=== PATIENT | female | born 1970 | race Caucasian/White ===

== ENCOUNTER 2016-04-06 10:54 | Emergency (ER) | payer BC ==
--- NOTE | 2016-04-06 12:49 | DIAGNOSTIC IMAGING REPORT ---
PROCEDURE: CT HEAD WITHOUT CONTRAST INDICATION: VISUAL CHANGES. TECHNIQUE: Axial CT images were acquired through the head. Coronal and sagittal reformations were created. COMPARISON: None. FINDINGS: No intracranial hemorrhage or extraaxial fluid collections. Ventricles are normal in size, shape and position. There is no mass, mass effect or midline shift. The wilkes-white matter differentiation is normal. There is no edema. The calvarium is intact. The paranasal sinuses and mastoid air cells are normally aerated. The extracranial soft tissues and orbits are normal. IMPRESSION: 1. No CT evidence of acute intracranial process. 2. Findings discussed with at . All CT scans at this facility use dose modulation, iterative reconstruction, and/or weight-based dosing when appropriate to reduce radiation dose to as low as reasonably achievable.
--- NOTE | 2016-04-06 12:56 | DIAGNOSTIC IMAGING REPORT ---
PROCEDURE: XR CHEST 2 VIEW INDICATION: NEAR SYNCOPE TECHNIQUE: PA and lateral views. COMPARISON: None. FINDINGS: Lungs are clear. Heart and mediastinum are normal. Thorax is normal. IMPRESSION: 1. Negative chest.
--- NOTE | 2016-04-06 15:57 | ED NURSING NOTES ---
Clinical Report - Nurses [facility] [address] [place] [address] 04/06/2016 10:57 Patient: JAZZ DAVE TRIAGE Triage time 11:00 Apr 06 2016. Acuity: LEVEL 3. Chief Complaint: NEAR-SYNCOPE. Alert. PARVIN COMA SCORE: Parvin Coma Scale: 15- eyes open spontaneously (4); best verbal response- oriented x 4 (5); best motor response- obeys commands (6). --11:19 Genaro Lovett R.N. 11:06 04/06/16. BP: 132/77. HR: 96. RR: 16. O2 saturation: 100% on room air. Temp: 99.8 F. Pain level now: 0/10. --11:19 Genaro Lovett R.N. Weight: 104.3 kg stated. Height/Length: 65 inches Per Patient. BMI: 38.3. --11:08 Genaro Lovett R.N. Medications Lovastatin Oral 40 mg, daily. Vitamin D Oral (Capsule 2000 unit) 1 capsule, daily. --11:13 Genaro Lovett R.N. Lisinopril-Hydrochlorothiazide Oral (Tablet 10-12.5 mg) 1 tablet, daily. --11:15 Genaro Lovett R.N. Benadryl Oral 25 mg, at bedtime. --11:16 Genaro Lovett R.N. Allergies Sulfa Antibiotics. Definite Moderate(hives) --11:14 Genaro Lovett R.N. Medication/allergy information source: the patient. --11:19 Genaro Lovett R.N. History Arrived by private vehicle. Historian: patient. Primary physician (Tana White, [facility], [facility]). ( Near Syncopal Episode this morning. Pt states that she was in her kitchen this morning and felt as though she was going to black out. She also states that she has had previous similar episodes in the past and that they resolved spontaneously.). Patient was last known well (about one hour ago). Onset was abrupt. Started while participating in light activity. 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 PAST MEDICAL HX: Immunizations: status is unknown. SOCIAL HX: Never smoker. No alcohol use or drug use. No infectious disease exposure. ABUSE ASSESSMENT: No report of abuse. FALL RISK ASSESSMENT: Fall risk assessment completed. No fall risk identified. NUTRITIONAL RISK ASSESSMENT: The nutritional risk assessment revealed no deficiencies. FUNCTIONAL ASSESSMENT: Functional assessment: no impairments noted. LEARNING NEEDS ASSESSMENT: The learning needs assessment revealed no barriers. SKIN INTEGRITY ASSESSMENT: Skin integrity risk assessment completed. No skin integrity risk identified. --11:19 Genaro Lovett R.N. PROBLEMS: Hypertension. Hypercholesterolemia. --11:18 Genaro Lovett R.N. ADDITIONAL SURGERIES: Foot. Hysterectomy. --11:18 Genaro Lovett R.N. Interventions ID band on patient. To treatment room. --11:19 Genaro Lovett R.N. PHYSICAL ASSESSMENT Ambulatory to room. GENERAL / NEURO / PSYCH: Oriented X 4. Alert. Speech within normal limits. HEENT: No facial asymmetry noted. RESPIRATORY: Respirations not labored. CVS: Cardiac rhythm: normal sinus rhythm. GI / : Abdomen soft and nontender. SKIN: Skin is warm and dry. --11:19 Genaro Lovett R.N. NURSING PROGRESS NOTES Patient gowned. Reassurance given. Patient identifiers checked. Call light placed in reach. Bed placed in lowest position. Brakes of bed on. Patient ready for evaluation- chart flagged and ED physician notified. --11:19 Genaro Lovett R.N. EKG time: (11:13 AM). EKG was performed by a tech and shown to the ED physician. --11:23 Maude García 11:30 04/06/2016 Site #1 started via IV in the left forearm with an 20g angiocath, with aseptic technique and good blood return; one attempt. Blood drawn: rainbow set. Labeled in the presence of the patient and sent to the lab. Saline lock flushed with 10 mL saline. --11:40 Genaro Lovett R.N. 12:10 04/06/16. Patient transported to CT by stretcher with tech. --12:21 Genaro Lovett R.N. 12:30 04/06/16. Patient returned from CT by stretcher with tech. --12:30 Genaro Lovett R.N. 11:45 04/06/16. BP: 104/59. HR: 96. RR: 20. O2 saturation: 97% on room air. Pain level now: 0. --12:34 Genaro Lovett R.N. 12:30 04/06/16. BP: 110/68. HR: 86 (regular and normal rate). RR: 16. O2 saturation: 96% on room air. Pain level now: 0. --12:36 Genaro Lovett R.N. 11:30 late entry -. Checked patient name, birthdate and medical record number: patient confirmed. Clean catch urine collected with return of yellow-colored clear urine; odor is normal; sample sent to lab for urinalysis and culture. Specimen labeled in the presence of the patient. --12:37 Genaro Lovett R.N. 13:01 04/06/16. BP: 144/69. HR: 97. RR: 16. O2 saturation: 100% on room air. --13:13 Genaro Lovett R.N. 14:20 04/06/16. BP: 115/60 taken while lying. HR: 93. RR: 19. O2 saturation: 95%. Pain level now: 0. --14:36 Genaro Lovett R.N. 14:25 04/06/16. BP: 126/83 taken while sitting. HR: 103. RR: 16 (regular). O2 saturation: 100% on room air. Pain level now: 0. --14:38 Genaro Lovett R.N. 14:00 04/06/16. BP: 119/68. HR: 110. RR: 16. O2 saturation: 98% on room air. Pain level now: 010. --14:40 Genaro Lovett R.N. ( Called pts. Dr. Shayne No at . Pt.- Dr. Tana Gifford- [phone]). --15:42 Christine Aparicio ER Tech1 ( Appt. made for pt. tomorrow at [address] Olson.). --15:55 Christine Aparicio Tech1 16:00 04/06/2016 Started bag #1 1000 mL IV Fluids IV NS (Saline); at 1000 mL/hr over 30 minute(s) via site #1 via IV pump. --16:00 Guerita Ceballos R.N. 16:02 amb to the BR without assistance. --16:02 Guerita Ceballos R.N. 16:00 04/06/16. Temp: 98.9 F (oral). --16:02 Guerita Ceballos R.N. 15:00 04/06/16. BP: 100/69. HR: 87. RR: 16. O2 saturation: 97%. Pain level now: 0/10. --17:06 Genaro Lovett R.N. <<STRICKEN ENTRY-- 16:30 04/06/2016 Site #1 removed upon admission. --17:09 Genaro Lovett R.N. --END STRIKE>> Correction. --17:12 Genaro Lovett R.N. 16:30 04/06/2016 Site #1 removed upon discharge. Manual pressure, pressure dressing and bandaid applied. --17:12 Genaro Lovett R.N. 16:30 04/06/2016 IV Fluids IV NS Discontinued: bag #1 infused. Total amount infused: 500 mL. IV patency established. IV site checked: no pain, redness, or swelling. IV flushed thoroughly. --17:08 Genaro Lovett R.N. DISPOSITION / DISCHARGE 16:30 04/06/16. BP: 111/69. HR: 87. RR: 16. O2 saturation: 98% on room air. Temp: 99.8 F (oral). Pain level now: 0/10. --16:50 Genaro Lovett R.N. Departure time: 1635. --16:50 Genaro Lovett R.N. 16:35. No learning barriers present. Discharge instructions provided and reviewed with the patient. Reviewed medication(s) (continue your usual medications as previously). Reviewed referral to family practice for followup. Work and school note given. Patient verbalized understanding. Written instructions provided in [place] (copy of pt's EKG and a copy of her lab work sent with her). The patient was discharged by the physician. She was discharged home and accompanied by spouse. She left the Emergency Department ambulatory and via private vehicle. Spouse driving. --17:02 Genaro Lovett R.N. Locked/Released at 04/06/2016 17:13 by Genaro Lovett R.N.
--- NOTE | 2016-04-06 15:57 | ED CLINICAL REPORT ---
Clinical Report - Physicians/[facility] [address] [place] [address] 04/06/2016 10:57 Patient: JAZZ DAVE Time Seen: 11:38 Apr 06 2016. Arrived- By private vehicle. Historian- patient. CPT: ER phys charges level 4 plus (#133762). EKG interpretation (#841101). HISTORY OF PRESENT ILLNESS The patient has recovered. Chief Complaint: NEAR-SYNCOPE and transient blurred vision. This occurred just prior to arrival. It was abrupt in onset and has been intermittent (lasting minutes). (( Near Syncopal Episode this morning. Pt states that she was in her kitchen this morning and felt as though she was going to black out. She also states that she has had previous similar episodes in the past and that they resolved spontaneously.). Patient was last known well (about one hour ago). Onset was abrupt. Started while participating in light activity.). Event was witnessed. At time of event, she was standing. The patient had preceding symptoms of light-headedness and dim vision. No preceding symptoms of nausea or chest pain. The patient felt faint. Experienced repeated episodes. No injuries noted. Currently she feels normal. Similar symptoms previously: Several times, milder. ( Has never told anyone about these before.). Recent medical care: Not recently seen/assessed. REVIEW OF SYSTEMS No headache, dizziness, weakness, chest pain or palpitations. No abdominal pain, vomiting, diarrhea, black stools or bloody stools. No fever, sore throat, difficulty breathing, difficulty with urination or skin rash. No enlarged lymph nodes or cough. All systems otherwise negative, except as recorded above. PAST HISTORY ( Hypertension. Hypercholesterolemia. ADDITIONAL SURGERIES: Foot. Hysterectomy.). Medications: Benadryl Oral 25 mg, at bedtime. Lisinopril-Hydrochlorothiazide Oral (Tablet 10-12.5 mg) 1 tablet, daily. Lovastatin Oral 40 mg, daily. Vitamin D Oral (Capsule 2000 unit) 1 capsule, daily. Allergies: Sulfa Antibiotics. Definite Moderate(hives). SOCIAL HISTORY Never smoker. No alcohol use or drug use. ADDITIONAL NOTES The nursing notes have been reviewed. PHYSICAL EXAM Vital Signs: 04/06/2016 11:06 BP: 132/77. HR: 96. RR: 16. O2 saturation: 100%. Temp: 99.8 F. Pain level now: 0/10. Appearance: Alert. No acute distress. Eyes: Pupils equal, round and reactive to light. No nystagmus. Extraocular movements normal. ENT: Normal ENT inspection. TM's normal. Moist mucous membranes. Pharynx normal. Neck: Normal inspection. Neck supple. CVS: Normal heart rate and rhythm. Heart sounds normal. Pulses normal. Respiratory: No respiratory distress. Breath sounds normal. Abdomen: Soft and nontender. Back: Normal inspection. Skin: Skin warm. Normal skin color. No rash. Extremities: Extremities exhibit normal ROM. No lower extremity edema. Neuro: Alert. Oriented X 3. Mood/affect normal. Speech normal. Cranial nerves normal (as tested). No cerebellar findings. No motor deficit. No sensory deficit. Reflexes normal. LABS, X-RAYS, AND EKG EKG: No acute process. No acute ischemia. Normal sinus rhythm. Normal P waves. Normal KIM. Normal QRS complex. Normal axis. Normal ST and T waves. Prior EKG unavailable. The study has been interpreted contemporaneously. The study has been independently viewed by me. The EKG appears to be a good tracing. Chest X-ray: Normal Chest X-Ray. CT Head: Normal study. No acute changes. Head CT performed without contrast. The study was independently viewed by me, interpreted by the radiologist and discussed with the radiologist. Laboratory Tests: UA-Culture if indicated: (AARTI: 04/06/2016 11:40) ( MsgRcvd 04/06/2016 12:05) Final results Test Result Flag Units (Reference) URINE COLOR YELLOW URINE APPEARANCE CLEAR URINE GLUCOSE NEGATIVE (NEGATIVE) URINE BILIRUBIN NEGATIVE (NEGATIVE) URINE KETONE NEGATIVE (NEGATIVE) URINE SPECIFIC GRAVITY 1.010 (1.010-1.030) URINE PH 7.0 (5.0-8.0) URINE PROTEIN TRACE (NEGATIVE) URINE UROBILINOGEN 0.2 EU/dL (0.2-1.0) URINE NITRITE NEGATIVE (NEGATIVE) URINE BLOOD NEGATIVE (NEGATIVE) URINE LEUK ESTERASE NEGATIVE (NEGATIVE) URINE RBC NONE SEEN rbc/hpf (0-1) URINE WBC 1-3 wbc/hpf (0-1) URINE EPITHELIAL CELLS 1-3 EPI/hpf (0-5) URINE BACTERIA TRACE (<1+) (NONE SEEN) URINE COMMENT CULT NOT INDICATED 1+ MUCOUSURINE CULTURES ARE SET-UP BASED ON THE FOLLOWING CRITERIA:POSITIVE NITRITEPOSITIVE LEUKOCYTE ESTERASEGREATER THAN 10 WHITE BLOOD CELLSMODERATE (2+) OR GREATER BACTERIA CBC w Diff: (AARTI: 04/06/2016 11:30) ( [facility] 04/06/2016 12:38) Final results Test Result Flag Units (Reference) WHITE BLOOD COUNT 7.9 K/uL (4.5-11.5) RED BLOOD COUNT 4.72 M/uL (4.00-5.20) HEMOGLOBIN 13.4 gm/dL (12.0-16.0) HEMATOCRIT 39.5 % (36.0-46.0) MEAN CELL VOLUME 84 fL (80-100) MEAN CORPUSCULAR HGB 28 pg (26-34) MEAN CORPUSCULAR HGB CONC 34 g/dL (31-37) RED CELL DISTRIBUTION WIDTH 12.9 % (11.6-14.8) PLATELET COUNT 381 K/uL (150-400) NEUTROPHIL % 63.5 % (50-75) LYMPH % 28.2 % (25-40) MONO % 5.8 % (3-14) EOSINOPHIL % 1.8 % (0-4) BASOPHIL % 0.7 % (0-2) SED RATE WESTERGREN 31 H mm/hr (0-20) BNP: (AARTI: 04/06/2016 11:30) ( [facility] 04/06/2016 12:32) Final results Test Result Flag Units (Reference) B-TYPE NATRIURETIC PEPTIDE 10.8 pg/ml (5-100) CHEM 13 PANEL: (AARTI: 04/06/2016 11:30) ( [facility] 04/06/2016 13:15) Final results Test Result Flag Units (Reference) GLUCOSE 116 H mg/dL (70-110) BUN 17 mg/dL (7-18) CREATININE 0.9 mg/dL (0.6-1.3) Estimated GFR >60 mL/min Estimated GFR- >60 mL/min Note: Persistent reduction over 3 months in eGFR<60 mL/min/1.73 m2 defines CKD. Patients with eGFR values>=60 mL/min/1.73 m2 may also have CKD if evidence ofpersistent proteinuria. Additional information may be foundat [email or web address].org. SODIUM 141 mmol/L (136-145) POTASSIUM 4.4 mmol/L (3.5-5.1) CHLORIDE 103 mmol/L (98-107) CARBON DIOXIDE 26 mmol/L (21-32) CALCIUM 9.5 mg/dL (8.5-10.1) TOTAL PROTEIN 7.3 g/dL (6.4-8.2) ALBUMIN 4.3 g/dL (3.3-5.0) BILIRUBIN, TOTAL 0.3 mg/dL (0.0-1.0) ALKALINE PHOSPHATASE 68 U/L (46-116) AST (SGOT) 45 H U/L (15-37) ALT (SGPT) 82 H U/L (12-78) MAGNESIUM 2.1 mg/dL (1.8-2.4) CPK 111 U/L (24-260) TROPONIN I <0.05 ng/mL (0.00-1.5) TROPONIN REFERENCE RANGE:<0.1 NEGATIVE0.1-1.5 INDETERMINANT>1.5 POSITIVE THYROID STIMULATING HORMONE 1.951 uIU/mL (0.34-3.74) C-REACTIVE PROTEIN 1.1 H mg/dL (0.0-0.9) . PROGRESS AND PROCEDURES Course of Care: on more specific questioning the patient reveals that her spells are felt to be visual blurriness that comes on. She does not feel dizzy or have symptoms of vertigo. She is not quite sure if these are feelings of near syncope or acute visual changes. She did see an surveillance sensor officer recently because of a screening exam by an precision grinder external. 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 No acute disease process noted. Patient has no history of cardiovascular disease or cerebrovascular disease. No history of migraines or TIA. No history of seizures. 14:17 04/06/16. Patient had a spell in the emergency room. Vitals were normal as well as a cardiac cath lab technologist. There were no neurologic deficits on exam during her spell. Patient describes a pressure sensation over her head neck and upper chest when these spells come on as well. Discussed case with patient's primary care provider, (Balta: Will see in the office within the next week.). Reviewed test results. Agreed upon need for patient follow-up. Health care provider will see patient in office. Patient/family counseled. Disposition: Discharged. Condition: stable and unchanged. CLINICAL IMPRESSION Near syncope vs visual symptoms. INSTRUCTIONS No strenuous activity. Rest. (Stay with family member until follow up.). Warnings: Further evaluation is necessary. GENERAL WARNINGS: Return or contact your physician immediately if your condition worsens or changes unexpectedly, if not improving as expected, or if other problems arise. Your Current Medications: CONTINUE TAKING THE FOLLOWING MEDICATIONS: Benadryl Oral : 25 mg at bedtime. Lisinopril-Hydrochlorothiazide Oral : Tablet 10-12.5 mg, 1 tablet daily. Lovastatin Oral : 40 mg daily. Vitamin D Oral : Capsule 2000 unit, 1 capsule daily. Follow-up: Follow up with your doctor Whitney at 815 am. tomorrow as scheduled. Understanding of the discharge instructions verbalized by patient. (Electronically signed by Kevin Owen MD 04/08/2016 21:07)
--- NOTE | 2016-04-06 15:57 | ED NURSING NOTES ---
Clinical Report - Nurses [facility] [address] [place] [address] 04/06/2016 10:57 Patient: JAZZ DAVE TRIAGE Triage time 11:00 Apr 06 2016. Acuity: LEVEL 3. Chief Complaint: NEAR-SYNCOPE. Alert. PARVIN COMA SCORE: Parvin Coma Scale: 15- eyes open spontaneously (4); best verbal response- oriented x 4 (5); best motor response- obeys commands (6). --11:19 Genaro Lovett R.N. 11:06 04/06/16. BP: 132/77. HR: 96. RR: 16. O2 saturation: 100% on room air. Temp: 99.8 F. Pain level now: 0/10. --11:19 Genaro Lovett R.N. Weight: 104.3 kg stated. Height/Length: 65 inches Per Patient. BMI: 38.3. --11:08 Genaro Lovett R.N. Medications Lovastatin Oral 40 mg, daily. Vitamin D Oral (Capsule 2000 unit) 1 capsule, daily. --11:13 Genaro Lovett R.N. Lisinopril-Hydrochlorothiazide Oral (Tablet 10-12.5 mg) 1 tablet, daily. --11:15 Genaro Lovett R.N. Benadryl Oral 25 mg, at bedtime. --11:16 Genaro Lovett R.N. Allergies Sulfa Antibiotics. Definite Moderate(hives) --11:14 Genaro Lovett R.N. Medication/allergy information source: the patient. --11:19 Genaro Lovett R.N. History Arrived by private vehicle. Historian: patient. Primary physician (Tana White, [facility], [facility]). ( Near Syncopal Episode this morning. Pt states that she was in her kitchen this morning and felt as though she was going to black out. She also states that she has had previous similar episodes in the past and that they resolved spontaneously.). Patient was last known well (about one hour ago). Onset was abrupt. Started while participating in light activity. 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 PAST MEDICAL HX: Immunizations: status is unknown. SOCIAL HX: Never smoker. No alcohol use or drug use. No infectious disease exposure. ABUSE ASSESSMENT: No report of abuse. FALL RISK ASSESSMENT: Fall risk assessment completed. No fall risk identified. NUTRITIONAL RISK ASSESSMENT: The nutritional risk assessment revealed no deficiencies. FUNCTIONAL ASSESSMENT: Functional assessment: no impairments noted. LEARNING NEEDS ASSESSMENT: The learning needs assessment revealed no barriers. SKIN INTEGRITY ASSESSMENT: Skin integrity risk assessment completed. No skin integrity risk identified. --11:19 Genaro Lovett R.N. PROBLEMS: Hypertension. Hypercholesterolemia. --11:18 Genaro Lovett R.N. ADDITIONAL SURGERIES: Foot. Hysterectomy. --11:18 Genaro Lovett R.N. Interventions ID band on patient. To treatment room. --11:19 Genaro Lovett R.N. PHYSICAL ASSESSMENT Ambulatory to room. GENERAL / NEURO / PSYCH: Oriented X 4. Alert. Speech within normal limits. HEENT: No facial asymmetry noted. RESPIRATORY: Respirations not labored. CVS: Cardiac rhythm: normal sinus rhythm. GI / : Abdomen soft and nontender. SKIN: Skin is warm and dry. --11:19 Genaro Lovett R.N. NURSING PROGRESS NOTES Patient gowned. Reassurance given. Patient identifiers checked. Call light placed in reach. Bed placed in lowest position. Brakes of bed on. Patient ready for evaluation- chart flagged and ED physician notified. --11:19 Genaro Lovett R.N. EKG time: (11:13 AM). EKG was performed by a tech and shown to the ED physician. --11:23 Maude García 11:30 04/06/2016 Site #1 started via IV in the left forearm with an 20g angiocath, with aseptic technique and good blood return; one attempt. Blood drawn: rainbow set. Labeled in the presence of the patient and sent to the lab. Saline lock flushed with 10 mL saline. --11:40 Genaro Lovett R.N. 12:10 04/06/16. Patient transported to CT by stretcher with tech. --12:21 Genaro Lovett R.N. 12:30 04/06/16. Patient returned from CT by stretcher with tech. --12:30 Genaro Lovett R.N. 11:45 04/06/16. BP: 104/59. HR: 96. RR: 20. O2 saturation: 97% on room air. Pain level now: 0. --12:34 Genaro Lovett R.N. 12:30 04/06/16. BP: 110/68. HR: 86 (regular and normal rate). RR: 16. O2 saturation: 96% on room air. Pain level now: 0. --12:36 Genaro Lovett R.N. 11:30 late entry -. Checked patient name, birthdate and medical record number: patient confirmed. Clean catch urine collected with return of yellow-colored clear urine; odor is normal; sample sent to lab for urinalysis and culture. Specimen labeled in the presence of the patient. --12:37 Genaro Lovett R.N. 13:01 04/06/16. BP: 144/69. HR: 97. RR: 16. O2 saturation: 100% on room air. --13:13 Genaro Lovett R.N. 14:20 04/06/16. BP: 115/60 taken while lying. HR: 93. RR: 19. O2 saturation: 95%. Pain level now: 0. --14:36 Genaro Lovett R.N. 14:25 04/06/16. BP: 126/83 taken while sitting. HR: 103. RR: 16 (regular). O2 saturation: 100% on room air. Pain level now: 0. --14:38 Genaro Lovett R.N. 14:00 04/06/16. BP: 119/68. HR: 110. RR: 16. O2 saturation: 98% on room air. Pain level now: 010. --14:40 Genaro Lovett R.N. ( Called pts. Dr. Shayne No at . Pt.- Dr. Tana Gifford- [phone]). --15:42 Christine Aparicio ER Tech1 ( Appt. made for pt. tomorrow at [address] Olson.). --15:55 Christine Aparicio Tech1 16:00 04/06/2016 Started bag #1 1000 mL IV Fluids IV NS (Saline); at 1000 mL/hr over 30 minute(s) via site #1 via IV pump. --16:00 Guerita Ceballos R.N. 16:02 amb to the BR without assistance. --16:02 Guerita Ceballos R.N. 16:00 04/06/16. Temp: 98.9 F (oral). --16:02 Guerita Ceballos R.N. 15:00 04/06/16. BP: 100/69. HR: 87. RR: 16. O2 saturation: 97%. Pain level now: 0/10. --17:06 Genaro Lovett R.N. <<STRICKEN ENTRY-- 16:30 04/06/2016 Site #1 removed upon admission. --17:09 Genaro Lovett R.N. --END STRIKE>> Correction. --17:12 Genaro Lovett R.N. 16:30 04/06/2016 Site #1 removed upon discharge. Manual pressure, pressure dressing and bandaid applied. --17:12 Genaro Lovett R.N. 16:30 04/06/2016 IV Fluids IV NS Discontinued: bag #1 infused. Total amount infused: 500 mL. IV patency established. IV site checked: no pain, redness, or swelling. IV flushed thoroughly. --17:08 Genaro Lovett R.N. DISPOSITION / DISCHARGE 16:30 04/06/16. BP: 111/69. HR: 87. RR: 16. O2 saturation: 98% on room air. Temp: 99.8 F (oral). Pain level now: 0/10. --16:50 Genaro Lovett R.N. Departure time: 1635. --16:50 Genaro Lovett R.N. 16:35. No learning barriers present. Discharge instructions provided and reviewed with the patient. Reviewed medication(s) (continue your usual medications as previously). Reviewed referral to family practice for followup. Work and school note given. Patient verbalized understanding. Written instructions provided in [place] (copy of pt's EKG and a copy of her lab work sent with her). The patient was discharged by the physician. She was discharged home and accompanied by spouse. She left the Emergency Department ambulatory and via private vehicle. Spouse driving. --17:02 Genaro Lovett R.N. Locked/Released at 04/06/2016 17:13 by Genaro Lovett R.N.
--- NOTE | 2016-04-06 15:57 | ED ORDER SUMMARY ---
..... 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 verbal order read back to Angélica STAHL) (11:44 Aleena R.N.) Chest 2V Urgent (11:55 04/06/2016 Angélica STAHL) (Ack 11:57 LNations ER Tech1) (12:30 LNations ER Tech1) CT Head wo Cont Urgent (11:55 04/06/2016 Angélica STAHL) (Ack 11:57 LNations ER Tech1) (12:30 LNations ER Tech1) Cardiac Panel Stat (11:55 04/06/2016 Angélica STAHL) (Ack 11:57 LNations ER Tech1) (12:03 Aleena R.N.) BNP Urgent (11:55 04/06/2016 Angélica STAHL) (Ack 11:57 LNations ER Tech1) (12:03 Aleena R.N.) TSH Urgent (11:55 04/06/2016 Angélica STAHL) (Ack 11:57 LNations ER Tech1) (12:03 Aleena R.N.) CRP Urgent (11:56 04/06/2016 Angélica STAHL) (Ack 11:57 LNations ER Tech1) (12:03 Aleena R.N.) ESR Urgent (11:56 04/06/2016 Angélica STAHL) (Ack 11:57 LNations ER Tech1) (12:03 Aleena FarmerNRhoda) - (Orthostatic BP/P) (14:21 04/06/2016 Angélica STAHL) (15:10 Aleena Montemayor) MEDICATION ORDERS: IV FLUIDS: IV Saline Lock (11:04 04/06/2016 Aleena Montemayor verbal order read back to Angélica STAHL) (Ack 12:02 Tabatha FarmerNRhoda) IV NS : initial bolus 500 mL (1000 mL/hr), then none - for X1 (NOW); Routine (15:34 04/06/2016 Angélica STAHL) (Ack 15:47 Tabatha Montemayor) (16:00 Tabatha Montemayor) ORDER SHEET NOTES: [Electronically signed by Genaro Lovett R.N. (17:13 04/06/2016)] [Electronically signed by Kevin Owen MD (21:07 04/08/2016)] [Electronically locked/signed by Genaro Lovett R.N. (17:13 04/06/2016)]
--- NOTE | 2016-04-06 15:57 | ED CLINICAL REPORT ---
Clinical Report - Physicians/Mid Levels [facility] [address] [place] [address] 04/06/2016 10:57 Patient: JAZZ DAVE Time Seen: 11:38 Apr 06 2016. Arrived- By private vehicle. Historian- patient. CPT: ER phys charges level 4 plus (#[id number]). EKG interpretation (#[id number]). HISTORY OF PRESENT ILLNESS The patient has recovered. Chief Complaint: NEAR-SYNCOPE and transient blurred vision. This occurred just prior to arrival. It was abrupt in onset and has been intermittent (lasting minutes). (( Near Syncopal Episode this morning. Pt states that she was in her kitchen this morning and felt as though she was going to black out. She also states that she has had previous similar episodes in the past and that they resolved spontaneously.). Patient was last known well (about one hour ago). Onset was abrupt. Started while participating in light activity.). Event was witnessed. At time of event, she was standing. The patient had preceding symptoms of light-headedness and dim vision. No preceding symptoms of nausea or chest pain. The patient felt faint. Experienced repeated episodes. No injuries noted. Currently she feels normal. Similar symptoms previously: Several times, milder. ( Has never told anyone about these before.). Recent medical care: Not recently seen/assessed. REVIEW OF SYSTEMS No headache, dizziness, weakness, chest pain or palpitations. No abdominal pain, vomiting, diarrhea, black stools or bloody stools. No fever, sore throat, difficulty breathing, difficulty with urination or skin rash. No enlarged lymph nodes or cough. All systems otherwise negative, except as recorded above. PAST HISTORY ( Hypertension. Hypercholesterolemia. ADDITIONAL SURGERIES: Foot. Hysterectomy.). Medications: Benadryl Oral 25 mg, at bedtime. Lisinopril-Hydrochlorothiazide Oral (Tablet 10-12.5 mg) 1 tablet, daily. Lovastatin Oral 40 mg, daily. Vitamin D Oral (Capsule 2000 unit) 1 capsule, daily. Allergies: Sulfa Antibiotics. Definite Moderate(hives). SOCIAL HISTORY Never smoker. No alcohol use or drug use. ADDITIONAL NOTES The nursing notes have been reviewed. PHYSICAL EXAM Vital Signs: 04/06/2016 11:06 BP: 132/77. HR: 96. RR: 16. O2 saturation: 100%. Temp: 99.8 F. Pain level now: 0/10. Appearance: Alert. No acute distress. Eyes: Pupils equal, round and reactive to light. No nystagmus. Extraocular movements normal. ENT: Normal ENT inspection. TM's normal. Moist mucous membranes. Pharynx normal. Neck: Normal inspection. Neck supple. CVS: Normal heart rate and rhythm. Heart sounds normal. Pulses normal. Respiratory: No respiratory distress. Breath sounds normal. Abdomen: Soft and nontender. Back: Normal inspection. Skin: Skin warm. Normal skin color. No rash. Extremities: Extremities exhibit normal ROM. No lower extremity edema. Neuro: Alert. Oriented X 3. Mood/affect normal. Speech normal. Cranial nerves normal (as tested). No cerebellar findings. No motor deficit. No sensory deficit. Reflexes normal. LABS, X-RAYS, AND EKG EKG: No acute process. No acute ischemia. Normal sinus rhythm. Normal P waves. Normal KIM. Normal QRS complex. Normal axis. Normal ST and T waves. Prior EKG unavailable. The study has been interpreted contemporaneously. The study has been independently viewed by me. The EKG appears to be a good tracing. Chest X-ray: Normal Chest X-Ray. CT Head: Normal study. No acute changes. Head CT performed without contrast. The study was independently viewed by me, interpreted by the radiologist and discussed with the radiologist. Laboratory Tests: UA-Culture if indicated: (AARTI: 04/06/2016 11:40) ( MsgRcvd 04/06/2016 12:05) Final results Test Result Flag Units (Reference) URINE COLOR YELLOW URINE APPEARANCE CLEAR URINE GLUCOSE NEGATIVE (NEGATIVE) URINE BILIRUBIN NEGATIVE (NEGATIVE) URINE KETONE NEGATIVE (NEGATIVE) URINE SPECIFIC GRAVITY 1.010 (1.010-1.030) URINE PH 7.0 (5.0-8.0) URINE PROTEIN TRACE (NEGATIVE) URINE UROBILINOGEN 0.2 EU/dL (0.2-1.0) URINE NITRITE NEGATIVE (NEGATIVE) URINE BLOOD NEGATIVE (NEGATIVE) URINE LEUK ESTERASE NEGATIVE (NEGATIVE) URINE RBC NONE SEEN rbc/hpf (0-1) URINE WBC 1-3 wbc/hpf (0-1) URINE EPITHELIAL CELLS 1-3 EPI/hpf (0-5) URINE BACTERIA TRACE (<1+) (NONE SEEN) URINE COMMENT CULT NOT INDICATED 1+ MUCOUSURINE CULTURES ARE SET-UP BASED ON THE FOLLOWING CRITERIA:POSITIVE NITRITEPOSITIVE LEUKOCYTE ESTERASEGREATER THAN 10 WHITE BLOOD CELLSMODERATE (2+) OR GREATER BACTERIA CBC w Diff: (AARTI: 04/06/2016 11:30) ( [facility] 04/06/2016 12:38) Final results Test Result Flag Units (Reference) WHITE BLOOD COUNT 7.9 K/uL (4.5-11.5) RED BLOOD COUNT 4.72 M/uL (4.00-5.20) HEMOGLOBIN 13.4 gm/dL (12.0-16.0) HEMATOCRIT 39.5 % (36.0-46.0) MEAN CELL VOLUME 84 fL (80-100) MEAN CORPUSCULAR HGB 28 pg (26-34) MEAN CORPUSCULAR HGB CONC 34 g/dL (31-37) RED CELL DISTRIBUTION WIDTH 12.9 % (11.6-14.8) PLATELET COUNT 381 K/uL (150-400) NEUTROPHIL % 63.5 % (50-75) LYMPH % 28.2 % (25-40) MONO % 5.8 % (3-14) EOSINOPHIL % 1.8 % (0-4) BASOPHIL % 0.7 % (0-2) SED RATE WESTERGREN 31 H mm/hr (0-20) BNP: (AARTI: 04/06/2016 11:30) ( [facility] 04/06/2016 12:32) Final results Test Result Flag Units (Reference) B-TYPE NATRIURETIC PEPTIDE 10.8 pg/ml (5-100) CHEM 13 PANEL: (AARTI: 04/06/2016 11:30) ( [facility] 04/06/2016 13:15) Final results Test Result Flag Units (Reference) GLUCOSE 116 H mg/dL (70-110) BUN 17 mg/dL (7-18) CREATININE 0.9 mg/dL (0.6-1.3) Estimated GFR >60 mL/min Estimated GFR- >60 mL/min Note: Persistent reduction over 3 months in eGFR<60 mL/min/1.73 m2 defines CKD. Patients with eGFR values>=60 mL/min/1.73 m2 may also have CKD if evidence ofpersistent proteinuria. Additional information may be foundat www.kidney.org. SODIUM 141 mmol/L (136-145) POTASSIUM 4.4 mmol/L (3.5-5.1) CHLORIDE 103 mmol/L (98-107) CARBON DIOXIDE 26 mmol/L (21-32) CALCIUM 9.5 mg/dL (8.5-10.1) TOTAL PROTEIN 7.3 g/dL (6.4-8.2) ALBUMIN 4.3 g/dL (3.3-5.0) BILIRUBIN, TOTAL 0.3 mg/dL (0.0-1.0) ALKALINE PHOSPHATASE 68 U/L (46-116) AST (SGOT) 45 H U/L (15-37) ALT (SGPT) 82 H U/L (12-78) MAGNESIUM 2.1 mg/dL (1.8-2.4) CPK 111 U/L (24-260) TROPONIN I <0.05 ng/mL (0.00-1.5) TROPONIN REFERENCE RANGE:<0.1 NEGATIVE0.1-1.5 INDETERMINANT>1.5 POSITIVE THYROID STIMULATING HORMONE 1.951 uIU/mL (0.34-3.74) C-REACTIVE PROTEIN 1.1 H mg/dL (0.0-0.9) . PROGRESS AND PROCEDURES Course of Care: on more specific questioning the patient reveals that her spells are felt to be visual blurriness that comes on. She does not feel dizzy or have symptoms of vertigo. She is not quite sure if these are feelings of near syncope or acute visual changes. She did see an sales rep recently because of a screening exam by an rivet hammer machine operator. 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 No acute disease process noted. Patient has no history of cardiovascular disease or cerebrovascular disease. No history of migraines or TIA. No history of seizures. 14:17 04/06/16. Patient had a spell in the emergency room. Vitals were normal as well as a crts. There were no neurologic deficits on exam during her spell. Patient describes a pressure sensation over her head neck and upper chest when these spells come on as well. Discussed case with patient's primary care provider, (Balta: Will see in the office within the next week.). Reviewed test results. Agreed upon need for patient follow-up. Health care provider will see patient in office. Patient/family counseled. Disposition: Discharged. Condition: stable and unchanged. CLINICAL IMPRESSION Near syncope vs visual symptoms. INSTRUCTIONS No strenuous activity. Rest. (Stay with family member until follow up.). Warnings: Further evaluation is necessary. GENERAL WARNINGS: Return or contact your physician immediately if your condition worsens or changes unexpectedly, if not improving as expected, or if other problems arise. Your Current Medications: CONTINUE TAKING THE FOLLOWING MEDICATIONS: Benadryl Oral : 25 mg at bedtime. Lisinopril-Hydrochlorothiazide Oral : Tablet 10-12.5 mg, 1 tablet daily. Lovastatin Oral : 40 mg daily. Vitamin D Oral : Capsule 2000 unit, 1 capsule daily. Follow-up: Follow up with your doctor Whitney at 815 am. tomorrow as scheduled. Understanding of the discharge instructions verbalized by patient. (Electronically signed by Kevin Owen MD 04/08/2016 21:07)
--- NOTE | 2016-04-06 15:57 | ED ORDER SUMMARY ---
..... Patient: JAZZ DAVE OrderSheet [facility] VisitID: [id number] [address] [place] [address] 45y, F Registration Date/Time: 04/06/2016 ORDER SHEET Weight: 104.3 kg (stated) Allergies: Sulfa Antibiotics GENERAL ORDERS: Steam Bone Press Tender (Continuous) (Syncope) (11:04 04/06/2016 Aleena R.NRhoda verbal order read back to Angélica STAHL) (11:29 Tabatha R.N.) EKG - ER Stat (11:04 04/06/2016 Aleena Barber.NRhoda verbal order read back to Angélica STAHL) (Ack 11:06 LNations ER Tech1) (11:17 Chad) UA-Culture if indicated Urgent (11:44 04/06/2016 Aleena Barber.N. verbal order read back to Angélica STAHL) (11:44 Aleena R.N.) Chest 2V Urgent (11:55 04/06/2016 Angélica STAHL) (Ack 11:57 LNations ER Tech1) (12:30 LNations ER Tech1) CT Head wo Cont Urgent (11:55 04/06/2016 Angélica STAHL) (Ack 11:57 LNations ER Tech1) (12:30 LNations ER Tech1) Cardiac Panel Stat (11:55 04/06/2016 Angélica STAHL) (Ack 11:57 LNations ER Tech1) (12:03 Aleena R.N.) BNP Urgent (11:55 04/06/2016 Angélica STAHL) (Ack 11:57 LNations ER Tech1) (12:03 Aleena R.N.) TSH Urgent (11:55 04/06/2016 Angélica STAHL) (Ack 11:57 LNations ER Tech1) (12:03 Aleena R.N.) CRP Urgent (11:56 04/06/2016 Angélica STAHL) (Ack 11:57 LNations ER Tech1) (12:03 Aleena R.N.) ESR Urgent (11:56 04/06/2016 Angélica STAHL) (Ack 11:57 LNations ER Tech1) (12:03 Aleena FarmerNRhoda) - (Orthostatic BP/P) (14:21 04/06/2016 Angélica STAHL) (15:10 Aleena Montemayor) MEDICATION ORDERS: IV FLUIDS: IV Saline Lock (11:04 04/06/2016 Aleena Montemayor verbal order read back to Angélica STAHL) (Ack 12:02 Tabatha FarmerNRhoda) IV NS : initial bolus 500 mL (1000 mL/hr), then none - for X1 (NOW); Routine (15:34 04/06/2016 Angélica STAHL) (Ack 15:47 Tabatha Montemayor) (16:00 Tabatha Montemayor) ORDER SHEET NOTES: [Electronically signed by Genaro Lovett R.N. (17:13 04/06/2016)] [Electronically signed by Kevin Owen MD (21:07 04/08/2016)] [Electronically locked/signed by Genaro Lovett R.N. (17:13 04/06/2016)]
--- NOTE | 2016-04-08 21:08 | ED DISCHARGE INSTRUCTIONS ---
Patient: JAZZ DAVE General Instructions [facility] VisitID: [id number] [address] [place] [address] 45y, F Registration Date/Time: 04/06/2016 Near syncope vs visual symptoms. INSTRUCTIONS No strenuous activity. Rest. (Stay with family member until follow up.). Warnings: Further evaluation is necessary. GENERAL WARNINGS: Return or contact your physician immediately if your condition worsens or changes unexpectedly, if not improving as expected, or if other problems arise. Your Current Medications: CONTINUE TAKING THE FOLLOWING MEDICATIONS: Benadryl Oral : 25 mg at bedtime. Lisinopril-Hydrochlorothiazide Oral : Tablet 10-12.5 mg, 1 tablet daily. Lovastatin Oral : 40 mg daily. Vitamin D Oral : Capsule 2000 unit, 1 capsule daily. Follow-up: Follow up with your doctor Whitney at 815 am. tomorrow as scheduled. Understanding of the discharge instructions verbalized by patient. No strenuous activity. Rest. (Electronically signed by Kevin Owen MD 04/08/2016 21:07)
--- NOTE | 2016-04-08 21:08 | ED MAR SUMMARY ---
..... Medication Administration Record [facility] [address] [place] [address] Patient: JAZZ DAVE Visit ID: [id number] 45y, F Weight: 104.3 kg Height/Length: 65 in BMI: 38.3 ALLERGIES: Sulfa Antibiotics Start 16:00 04/06/2016 Guerita Ceballos RLeann, Stop 16:30 04/06/2016 Genaro Lovett RLeann Medication Administered: IV NS (SALINE), Dose: IV Fluids over 30 minute(s), Rate: 1000 mL/hr, Dispensed: 1000 mL bag, Site: #1 left forearm. Medication Ordered: IV NS : initial bolus 500 mL (1000 mL/hr), then none - for X1 (NOW); Routine.
--- NOTE | 2016-04-08 21:08 | ED DISCHARGE INSTRUCTIONS ---
Patient: JAZZ DAVE General Instructions [facility] VisitID: [id number] [address] [place] [address] 45y, F Registration Date/Time: 04/06/2016 Near syncope vs visual symptoms. INSTRUCTIONS No strenuous activity. Rest. (Stay with family member until follow up.). Warnings: Further evaluation is necessary. GENERAL WARNINGS: Return or contact your physician immediately if your condition worsens or changes unexpectedly, if not improving as expected, or if other problems arise. Your Current Medications: CONTINUE TAKING THE FOLLOWING MEDICATIONS: Benadryl Oral : 25 mg at bedtime. Lisinopril-Hydrochlorothiazide Oral : Tablet 10-12.5 mg, 1 tablet daily. Lovastatin Oral : 40 mg daily. Vitamin D Oral : Capsule 2000 unit, 1 capsule daily. Follow-up: Follow up with your doctor Whitney at 815 am. tomorrow as scheduled. Understanding of the discharge instructions verbalized by patient. No strenuous activity. Rest. (Electronically signed by Kevin Owen MD 04/08/2016 21:07)
--- NOTE | 2016-04-08 21:08 | ED MAR SUMMARY ---
..... Medication Administration Record [facility] [address] [place] [address] Patient: JAZZ DAVE Visit ID: [id number] 45y, F Weight: 104.3 kg Height/Length: 65 in BMI: 38.3 ALLERGIES: Sulfa Antibiotics Start 16:00 04/06/2016 Guerita Ceballos RLeann, Stop 16:30 04/06/2016 Genaro Lovett RLeann Medication Administered: IV NS (SALINE), Dose: IV Fluids over 30 minute(s), Rate: 1000 mL/hr, Dispensed: 1000 mL bag, Site: #1 left forearm. Medication Ordered: IV NS : initial bolus 500 mL (1000 mL/hr), then none - for X1 (NOW); Routine.
--- NOTE | 2016-04-08 21:08 | ED MED RECONCILIATION SUMMARY ---
Patient: JAZZ DAVE Medication Reconciliation Report [facility] VisitID: [id number] [address] [place] [address] 45y, F Registration Date/Time: 04/06/2016 Weight: 104.3 kg Height/Length: 65 in. BMI: 38.3 ALLERGIES: Sulfa Antibiotics The patient's Home Medications are listed below: CONTINUE TAKING THE FOLLOWING MEDICATIONS: Benadryl Oral 25 mg, at bedtime Lisinopril-Hydrochlorothiazide Oral (10-12.5 mg) 1 tablet, daily Lovastatin Oral 40 mg, daily Vitamin D Oral (2000 unit) 1 capsule, daily The source(s) of the original Home Medication information: patient The following Medications were given to the patient in the Emergency Department: IV NS IV Fluids bolus 0, then 1000 mL/hr, administered: 04/06/2016 4:00:00 PM The following Medications were prescribed to the patient: None.
--- NOTE | 2016-04-08 21:08 | ED MED RECONCILIATION SUMMARY ---
Patient: JAZZ DAVE Medication Reconciliation Report [facility] VisitID: [id number] [address] [place] [address] 45y, F Registration Date/Time: 04/06/2016 Weight: 104.3 kg Height/Length: 65 in. BMI: 38.3 ALLERGIES: Sulfa Antibiotics The patient's Home Medications are listed below: CONTINUE TAKING THE FOLLOWING MEDICATIONS: Benadryl Oral 25 mg, at bedtime Lisinopril-Hydrochlorothiazide Oral (10-12.5 mg) 1 tablet, daily Lovastatin Oral 40 mg, daily Vitamin D Oral (2000 unit) 1 capsule, daily The source(s) of the original Home Medication information: patient The following Medications were given to the patient in the Emergency Department: IV NS IV Fluids bolus 0, then 1000 mL/hr, administered: 04/06/2016 4:00:00 PM The following Medications were prescribed to the patient: None.
== END 2016-04-06 16:35 | disposition home or self-care (01) ==
LOC: ED SRH 10:54
DX: R55 Syncope and collapse (principal); I10 Essential (primary) hypertension; Z79.899 Other long term (current) drug therapy; Z88.2 Allergy status to sulfonamides
CPT/HCPCS: 90004; 90100; 90616; 91320; 91585; 92610; 92720; 93140; 95059; 95150

== ENCOUNTER 2016-04-07 13:34 | Emergency (ER) | payer BC ==
--- NOTE | 2016-04-07 17:25 | ED CLINICAL REPORT ---
Clinical Report - Physicians/Mid Levels [facility] [address] [address] 04/07/2016 13:38 Patient: JAZZ DAVE Time Seen: 13:52. Arrived- By private vehicle. Historian- patient. HISTORY OF PRESENT ILLNESS Chief Complaint: WEAKNESS. At its maximum, severity described as severe. When seen in the E.D., it was gone. Modifying factors- relieved by rest. Not worsened by anything. This started yesterday and is now gone. It was abrupt in onset and has been intermittent. The patient has had visual disturbance with blurred vision and generalized weakness. Similar symptoms previously: Several times. REVIEW OF SYSTEMS No chills, muscle aches, sweats, calf pain or chest pain. No cough, difficulty breathing, pedal edema, abdominal pain or black stools. No bloody stools, constipation, diarrhea, nausea or vomiting. No urinary problems. The patient has had fatigue. She has had decreased vision ("blurry"). She has had palpitations (chronically for 7 years). It has been similar to previous symptoms. All systems otherwise negative, except as recorded above. PAST HISTORY PCP - G[facility] at [facility]. Problems: Migraine Headache. Hypercholesterolemia. Hypertension. Additional Surgeries: Foot. Hysterectomy. Medications: Benadryl Oral 25 mg, at bedtime. Lisinopril-Hydrochlorothiazide Oral (Tablet 10-12.5 mg) 1 tablet, daily. Lovastatin Oral 40 mg, daily. Vitamin D Oral (Capsule 2000 unit) 1 capsule, daily. Allergies: Sulfa Antibiotics. Definite Moderate(hives). SOCIAL HISTORY Never smoker. No alcohol use or drug use. Is a local resident. She lives with spouse. FAMILY HISTORY Cancer in first-degree relative (mother). father with high cholesterol. ADDITIONAL NOTES The nursing notes have been reviewed. PHYSICAL EXAM Vital Signs: 04/07/2016 13:49 BP: 157/75. HR: 97. RR: 18. O2 saturation: 97%. Temp: 98.9 F. Have been reviewed. Appearance: Alert. Eyes: Pupils equal, round and reactive to light. ENT: Pharynx normal. Neck: Normal inspection. Neck supple. CVS: Normal heart rate and rhythm. Heart sounds normal. Respiratory: No respiratory distress. Breath sounds normal. Abdomen: No visible injury. Soft and nontender. Bowel sounds normal. No organomegaly. No mass. Back: Normal inspection. No CVA tenderness. Skin: Skin warm and dry. Normal skin color. Normal skin turgor. Extremities: Extremities exhibit normal ROM. No calf tenderness. No lower extremity edema. LABS, X-RAYS, AND EKG EKG: No acute process. Normal EKG. Rate: 75. The study has been independently viewed by me. Laboratory Tests: UA-Culture if indicated: (AARTI: 04/07/2016 15:00) ( MsgRcvd 04/07/2016 15:20) Final results Test Result Flag Units (Reference) URINE COLOR YELLOW URINE APPEARANCE CLEAR URINE GLUCOSE NEGATIVE (NEGATIVE) URINE BILIRUBIN NEGATIVE (NEGATIVE) URINE KETONE 1+ (NEGATIVE) URINE SPECIFIC GRAVITY <= 1.005 L (1.010-1.030) URINE PH 6.0 (5.0-8.0) URINE PROTEIN NEGATIVE (NEGATIVE) URINE UROBILINOGEN 0.2 EU/dL (0.2-1.0) URINE NITRITE NEGATIVE (NEGATIVE) URINE BLOOD TRACE-INTACT (NEGATIVE) URINE LEUK ESTERASE NEGATIVE (NEGATIVE) URINE RBC NONE SEEN rbc/hpf (0-1) URINE WBC NONE SEEN wbc/hpf (0-1) URINE EPITHELIAL CELLS NONE SEEN EPI/hpf (0-5) URINE BACTERIA NONE SEEN (NONE SEEN) URINE COMMENT CULT NOT INDICATED URINE CULTURES ARE SET-UP BASED ON THE FOLLOWING CRITERIA:POSITIVE NITRITEPOSITIVE LEUKOCYTE ESTERASEGREATER THAN 10 WHITE BLOOD CELLSMODERATE (2+) OR GREATER BACTERIA CBC w Diff: (AARTI: 04/07/2016 14:09) ( MsgRcvd 04/07/2016 14:21) Final results Test Result Flag Units (Reference) WHITE BLOOD COUNT 9.1 K/uL (4.5-11.5) RED BLOOD COUNT 4.67 M/uL (4.00-5.20) HEMOGLOBIN 13.3 gm/dL (12.0-16.0) HEMATOCRIT 39.0 % (36.0-46.0) MEAN CELL VOLUME 83 fL (80-100) MEAN CORPUSCULAR HGB 28 pg (26-34) MEAN CORPUSCULAR HGB CONC 34 g/dL (31-37) RED CELL DISTRIBUTION WIDTH 13.1 % (11.6-14.8) PLATELET COUNT 403 H K/uL (150-400) NEUTROPHIL % 66.9 % (50-75) LYMPH % 27.2 % (25-40) MONO % 5.3 % (3-14) EOSINOPHIL % 0 % (0-4) BASOPHIL % 0.6 % (0-2) PT with INR: (AARTI: 04/07/2016 14:09) ( [facility] 04/07/2016 14:45) Final results Test Result Flag Units (Reference) INR 1.0 (0.8-1.2) Low Intensity Therapy: INR 1.5-2.0 PT range 18.5-23.1Mod.Intensity Therapy: INR 2.0-3.0 PT range 23.1-31.5High Intensity Therapy: INR 2.5-3.5 PT range 27.4-35.5High Intensity Therapy 2: INR 3.0-4.0 PT range 31.5-39.3 APTT 26 SECONDS (24-34) BNP: (AARTI: 04/07/2016 14:09) ( [facility] 04/07/2016 14:46) Final results Test Result Flag Units (Reference) B-TYPE NATRIURETIC PEPTIDE 41.4 pg/ml (5-100) CMP: (AARTI: 04/07/2016 14:09) ( [facility] 04/07/2016 14:55) Final results Test Result Flag Units (Reference) GLUCOSE 114 H mg/dL (70-110) BUN 18 mg/dL (7-18) CREATININE 0.9 mg/dL (0.6-1.3) Estimated GFR >60 mL/min Estimated GFR- >60 mL/min Note: Persistent reduction over 3 months in eGFR<60 mL/min/1.73 m2 defines CKD. Patients with eGFR values>=60 mL/min/1.73 m2 may also have CKD if evidence ofpersistent proteinuria. Additional information may be foundat www.kidney.org. SODIUM 139 mmol/L (136-145) POTASSIUM 3.2 # L mmol/L (3.5-5.1) CHLORIDE 100 mmol/L (98-107) CARBON DIOXIDE 25 mmol/L (21-32) CALCIUM 9.6 mg/dL (8.5-10.1) TOTAL PROTEIN 8.0 g/dL (6.4-8.2) ALBUMIN 4.2 g/dL (3.3-5.0) BILIRUBIN, TOTAL 0.3 mg/dL (0.0-1.0) ALKALINE PHOSPHATASE 61 U/L (46-116) AST (SGOT) 33 U/L (15-37) ALT (SGPT) 76 U/L (12-78) LIPASE 128 U/L (73-393) AMYLASE 38 U/L (25-115) CPK 186 U/L (24-260) TROPONIN I <0.05 L ng/mL (0.00-1.5) TROPONIN REFERENCE RANGE:<0.1 NEGATIVE0.1-1.5 INDETERMINANT>1.5 POSITIVE THYROID STIMULATING HORMONE 1.634 uIU/mL (0.34-3.74) . PROGRESS AND PROCEDURES Course of Care: Patient is stable. Patient/family counseled. Old medical records reviewed. Disposition: Discharged. Condition: stable. CLINICAL IMPRESSION Near syncope near syncope versus visual/neurological symptoms. INSTRUCTIONS (talk with your primary care doctor, neurologist and/or lubrication supervisor about whether he would benefit from MRI imaging and a Holter monitor as discussed). Warnings: Further evaluation is necessary. GENERAL WARNINGS: Return or contact your physician immediately if your condition worsens or changes unexpectedly, if not improving as expected, or if other problems arise. Your Current Medications: CONTINUE TAKING THE FOLLOWING MEDICATIONS: Benadryl Oral : 25 mg at bedtime. Lisinopril-Hydrochlorothiazide Oral : Tablet 10-12.5 mg, 1 tablet daily. Lovastatin Oral : 40 mg daily. Vitamin D Oral : Capsule 2000 unit, 1 capsule daily. Follow-up: Follow up with your doctor tomorrow. Call for the next available appointment. Follow up with a lubrication supervisor and neurologist- as recommended by your primary care physician. Understanding of the discharge instructions verbalized by patient. (Electronically signed by Abhijeet Mullen MD 04/07/2016 18:36)
--- NOTE | 2016-04-07 17:25 | ED NURSING NOTES ---
Clinical Report - Nurses [facility] [address] [place] [address] 04/07/2016 13:38 Patient: JAZZ DAVE TRIAGE Triage time 13:44 Apr 07 2016. Acuity: LEVEL 3. Chief Complaint: NEAR-SYNCOPE. 13:49 04/07/16. Alert. No acute distress. SEPSIS SCREEN: Sepsis Screen. Negative (no infection suspected/documented). PARVIN COMA SCORE: Parvin Coma Scale: 15- eyes open spontaneously (4); best verbal response- oriented x 4 (5); best motor response- obeys commands (6). --13:49 Zee Campa 13:49 04/07/16. BP: 157/75. HR: 97. RR: 18. O2 saturation: 97%. Temp: 98.9 F. Pain level now 0/10. --13:49 Zee Campa. Weight: 104.3 kg stated. Height/Length: 65 inches Per Patient. BMI: 38.3. --13:48 Zee Campa. Medications Benadryl Oral 25 mg, at bedtime. Lisinopril-Hydrochlorothiazide Oral (Tablet 10-12.5 mg) 1 tablet, daily. Lovastatin Oral 40 mg, daily. Vitamin D Oral (Capsule 2000 unit) 1 capsule, daily. --13:48 Zee Campa. Medication/allergy information source: the patient. --13:49 Zee Campa. Allergies Sulfa Antibiotics. Definite Moderate(hives) --13:48 Zee Campa. History Arrived by private vehicle. Historian: patient. Accompanied by spouse. Primary physician ([facility]). This started yesterday. ( Pt reports that she has been having episodes of feeling faint and as though she is going to pass out. Pt denies total LOC. Has occurred 7-8 times in past hour. Pt reports that this has been going on a for about the past 6 months, but yesterday got much worse. Was seen here yesterday, presents today for increased symptoms. Has appointment with cardiology tomorrow at [facility] at 1430.). She has had weakness. No ear pain, nausea, trouble walking, headache or vomiting. No fainting episodes or tinnitus. 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 PAST MEDICAL HX: Hypertension. No history of stroke or diabetes mellitus. No history of seizures or GI bleed. Immunizations: up-to-date. SOCIAL HX: Never smoker. No alcohol use or drug use. FALL RISK ASSESSMENT: Fall risk assessment completed. No fall risk identified. NUTRITIONAL RISK ASSESSMENT: The nutritional risk assessment revealed no deficiencies. FUNCTIONAL ASSESSMENT: Functional assessment: no impairments noted. LEARNING NEEDS ASSESSMENT: The learning needs assessment revealed no barriers. SKIN INTEGRITY ASSESSMENT: Skin integrity risk assessment completed. No skin integrity risk identified. --13:49 Zee Campa. PROBLEMS: Hypercholesterolemia. Hypertension. --13:49 Zee Campa. ADDITIONAL SURGERIES: Foot. Hysterectomy. --13:49 Zee Campa. Assessment The patient states feels the same. --13:49 Zee Campa. Interventions ID band on patient. --13:49 Zee Campa. PHYSICAL ASSESSMENT 13:50 04/07/16. Ambulatory to room. Patient gowned. GENERAL / NEURO / PSYCH: Oriented X 4. Appears in no acute distress. Alert. Speech within normal limits. HEENT: No facial asymmetry noted. Pupils equal, round and reactive to light. RESPIRATORY: Respirations not labored. CVS: Normal sinus rhythm noted. Capillary refill less than 2 seconds. GI / : Abdomen soft and nontender. SKIN: Skin is warm and dry. --13:50 Zee Campa. NURSING PROGRESS NOTES 13:50 04/07/16. The plan of care for this patient has been created. regional sales executive, pulse oximeter and NIBP monitor placed on patient; electrical instrument technician- Lead II and V5; monitor alarms on. Patient gowned. Head of bed elevated. Reassurance given. Two patient identifiers checked. Call light placed in reach. Side rails up x 1. Bed placed in lowest position. Brakes of bed on. Patient ready for evaluation- chart flagged and ED physician and MERCHANDISE APPRAISER notified. --13:50 Zee Campa 14:10 04/07/2016 Site #1 started via IV in the left forearm with an 22g angiocath, with aseptic technique and good blood return; two attempts. Blood drawn: rainbow set. Labeled in the presence of the patient and sent to the lab. Saline lock flushed with 10 mL saline. --14:10 Zee Campa 14:11 04/07/16. BP: 115/60. HR: 91. RR: 14. O2 saturation: 99% on room air. --14:12 Benton Sheets 14:12 04/07/16. BP: 116/82 taken while standing. HR: 96. RR: 15. O2 saturation: 99%. 14:10 04/07/16. BP: 122/79 taken while sitting. HR: 96. RR: 16. O2 saturation: 98%. 14:08 04/07/16. BP: 115/60 taken while lying. HR: 81. RR: 16. O2 saturation: 99%. --14:17 Zee Campa 15:11 04/07/16. BP: 114/64. HR: 85. O2 saturation: 98% on room air. --15:11 Zee Campa EKG time: (16:31). EKG was performed by a tech and shown to the ED physician. --16:33 Raul Hedrick 17:07 04/07/16. Care transferred and report given (Genaro Barber RN). --17:07 Zee Campa <<STRICKEN ENTRY-- 18:42 04/07/16. BP: 107/67. HR: 74. RR: 17. O2 saturation: 97%. Pain level now: 0/10. --18:43 Genaro Lovett RRhodaNRhoda --END STRIKE>> Correction --18:44 Genaro Lovett R.N. 17:00 04/07/16. BP: 107/67. HR: 74. RR: 17. O2 saturation: 97% on room air. Pain level now: 0/10. --18:46 Genaro Lovett R.N. 17:30 04/07/16. BP: 154/77. HR: 74. RR: 16. O2 saturation: 96% on room air. Pain level now: 0/10. --18:48 Genaro Lovett R.N. DISPOSITION / DISCHARGE 18:05 04/07/16. BP: 119/63. HR: 79. RR: 16. O2 saturation: 97% on room air. ED physician notified. Temp: 99.3 F (oral). Pain level now: 0/10. --18:40 Genaro Lovett R.N. Departure time: 1810. --18:40 Genaro Lovett R.N. 18:10. Condition at departure: improved. No learning barriers present. Discharge instructions provided and reviewed with the patient and spouse. Reviewed medication(s) (continue your usual prescribed medications). Reviewed referral to a neurologist and clinical sociologist and family practice for followup. Patient and spouse verbalized understanding. Written instructions provided in Persian. The patient was discharged by the physician. She was discharged home and accompanied by spouse. She left the Emergency Department ambulatory and via private vehicle. Spouse driving. --18:42 Genrao Lovett R.N. Locked/Released at 04/07/2016 18:48 by Genaro Lovett R.N.
--- NOTE | 2016-04-07 17:25 | ED ORDER SUMMARY ---
..... Patient: JAZZ DAVE OrderSheet [facility] VisitID: [id number] [address] [place] [address] 45y, F Registration Date/Time: 04/07/2016 ORDER SHEET Weight: 104.3 kg (stated) Allergies: Sulfa Antibiotics GENERAL ORDERS: CBC w Diff Urgent (13:53 04/07/2016 Waleska STAHL) (Ack 14:03 Chad) (14:13 ALawrence ER Tech1) CMP Urgent (13:53 04/07/2016 Waleska STAHL) (Ack 14:03 Chad) (14:13 ALawrence ER Tech1) UA-Culture if indicated Urgent (13:53 04/07/2016 Waleska STAHL) (Ack 14:03 Chad) (14:58 HKone R.N.) Amylase Urgent (13:53 04/07/2016 Waleska STAHL) (Ack 14:03 Chad) (14:13 ALawrence ER Tech1) Lipase Urgent (13:53 04/07/2016 Waleska STAHL) (Ack 14:03 Chad) (14:13 ALawrence ER Tech1) CPK Urgent (13:53 04/07/2016 Waleska STAHL) (Ack 14:03 Chad) (14:13 ALawrence ER Tech1) Troponin-I Urgent (13:53 04/07/2016 Waleska STAHL) (Ack 14:03 Chad) (14:13 ALawrence ER Tech1) PT with INR Urgent (13:53 04/07/2016 Waleska STAHL) (Ack 14:03 Chad) (14:13 ALawrence ER Tech1) PTT Urgent (13:53 04/07/2016 Waleska STAHL) (Ack 14:03 Chad) (14:13 ALawrence ER Tech1) BNP Urgent (13:53 04/07/2016 Waleska STAHL) (Ack 14:03 Chad) (14:13 ALawrence ER Tech1) Vitals - Orthostatic (13:53 04/07/2016 Waleska STAHL) (Ack 14:10 ASchmuck) (14:15 ASchmuck) TSH Urgent (14:09 04/07/2016 Jesus verbal order read back to Waleska STAHL) (14:13 ALawrence ER Tech1) EKG - ER Stat (16:17 04/07/2016 Waleska STAHL) (16:33 LTapper) MEDICATION ORDERS: IV FLUIDS: IV Saline Lock (13:53 04/07/2016 Waleska STAHL) (14:10 Jesus) ORDER SHEET NOTES: [Electronically signed by Abhijeet Mullen MD (18:36 04/07/2016)] [Electronically signed by Genaro Lovett R.N. (18:48 04/07/2016)] [Electronically locked/signed by Genaro Lovett R.N. (18:48 04/07/2016)]
--- NOTE | 2016-04-07 17:25 | ED CLINICAL REPORT ---
Clinical Report - Physicians/Mid Levels [facility] [address] [place] [address] 04/07/2016 13:38 Patient: JAZZ DAVE Time Seen: 13:52. Arrived- By private vehicle. Historian- patient. HISTORY OF PRESENT ILLNESS Chief Complaint: WEAKNESS. At its maximum, severity described as severe. When seen in the E.D., it was gone. Modifying factors- relieved by rest. Not worsened by anything. This started yesterday and is now gone. It was abrupt in onset and has been intermittent. The patient has had visual disturbance with blurred vision and generalized weakness. Similar symptoms previously: Several times. REVIEW OF SYSTEMS No chills, muscle aches, sweats, calf pain or chest pain. No cough, difficulty breathing, pedal edema, abdominal pain or black stools. No bloody stools, constipation, diarrhea, nausea or vomiting. No urinary problems. The patient has had fatigue. She has had decreased vision ("blurry"). She has had palpitations (chronically for 7 years). It has been similar to previous symptoms. All systems otherwise negative, except as recorded above. PAST HISTORY PCP - Gifford at [facility]. Problems: Migraine Headache. Hypercholesterolemia. Hypertension. Additional Surgeries: Foot. Hysterectomy. Medications: Benadryl Oral 25 mg, at bedtime. Lisinopril-Hydrochlorothiazide Oral (Tablet 10-12.5 mg) 1 tablet, daily. Lovastatin Oral 40 mg, daily. Vitamin D Oral (Capsule 2000 unit) 1 capsule, daily. Allergies: Sulfa Antibiotics. Definite Moderate(hives). SOCIAL HISTORY Never smoker. No alcohol use or drug use. Is a local resident. She lives with spouse. FAMILY HISTORY Cancer in first-degree relative (mother). father with high cholesterol. ADDITIONAL NOTES The nursing notes have been reviewed. PHYSICAL EXAM Vital Signs: 04/07/2016 13:49 BP: 157/75. HR: 97. RR: 18. O2 saturation: 97%. Temp: 98.9 F. Have been reviewed. Appearance: Alert. Eyes: Pupils equal, round and reactive to light. ENT: Pharynx normal. Neck: Normal inspection. Neck supple. CVS: Normal heart rate and rhythm. Heart sounds normal. Respiratory: No respiratory distress. Breath sounds normal. Abdomen: No visible injury. Soft and nontender. Bowel sounds normal. No organomegaly. No mass. Back: Normal inspection. No CVA tenderness. Skin: Skin warm and dry. Normal skin color. Normal skin turgor. Extremities: Extremities exhibit normal ROM. No calf tenderness. No lower extremity edema. LABS, X-RAYS, AND EKG EKG: No acute process. Normal EKG. Rate: 75. The study has been independently viewed by me. Laboratory Tests: UA-Culture if indicated: (AARTI: 04/07/2016 15:00) ( MsgRcvd 04/07/2016 15:20) Final results Test Result Flag Units (Reference) URINE COLOR YELLOW URINE APPEARANCE CLEAR URINE GLUCOSE NEGATIVE (NEGATIVE) URINE BILIRUBIN NEGATIVE (NEGATIVE) URINE KETONE 1+ (NEGATIVE) URINE SPECIFIC GRAVITY <= 1.005 L (1.010-1.030) URINE PH 6.0 (5.0-8.0) URINE PROTEIN NEGATIVE (NEGATIVE) URINE UROBILINOGEN 0.2 EU/dL (0.2-1.0) URINE NITRITE NEGATIVE (NEGATIVE) URINE BLOOD TRACE-INTACT (NEGATIVE) URINE LEUK ESTERASE NEGATIVE (NEGATIVE) URINE RBC NONE SEEN rbc/hpf (0-1) URINE WBC NONE SEEN wbc/hpf (0-1) URINE EPITHELIAL CELLS NONE SEEN EPI/hpf (0-5) URINE BACTERIA NONE SEEN (NONE SEEN) URINE COMMENT CULT NOT INDICATED URINE CULTURES ARE SET-UP BASED ON THE FOLLOWING CRITERIA:POSITIVE NITRITEPOSITIVE LEUKOCYTE ESTERASEGREATER THAN 10 WHITE BLOOD CELLSMODERATE (2+) OR GREATER BACTERIA CBC w Diff: (AARTI: 04/07/2016 14:09) ( MsgRcvd 04/07/2016 14:21) Final results Test Result Flag Units (Reference) WHITE BLOOD COUNT 9.1 K/uL (4.5-11.5) RED BLOOD COUNT 4.67 M/uL (4.00-5.20) HEMOGLOBIN 13.3 gm/dL (12.0-16.0) HEMATOCRIT 39.0 % (36.0-46.0) MEAN CELL VOLUME 83 fL (80-100) MEAN CORPUSCULAR HGB 28 pg (26-34) MEAN CORPUSCULAR HGB CONC 34 g/dL (31-37) RED CELL DISTRIBUTION WIDTH 13.1 % (11.6-14.8) PLATELET COUNT 403 H K/uL (150-400) NEUTROPHIL % 66.9 % (50-75) LYMPH % 27.2 % (25-40) MONO % 5.3 % (3-14) EOSINOPHIL % 0 % (0-4) BASOPHIL % 0.6 % (0-2) PT with INR: (AARTI: 04/07/2016 14:09) ( [facility] 04/07/2016 14:45) Final results Test Result Flag Units (Reference) INR 1.0 (0.8-1.2) Low Intensity Therapy: INR 1.5-2.0 PT range 18.5-23.1Mod.Intensity Therapy: INR 2.0-3.0 PT range 23.1-31.5High Intensity Therapy: INR 2.5-3.5 PT range 27.4-35.5High Intensity Therapy 2: INR 3.0-4.0 PT range 31.5-39.3 APTT 26 SECONDS (24-34) BNP: (AARTI: 04/07/2016 14:09) ( [facility] 04/07/2016 14:46) Final results Test Result Flag Units (Reference) B-TYPE NATRIURETIC PEPTIDE 41.4 pg/ml (5-100) CMP: (AARTI: 04/07/2016 14:09) ( [facility] 04/07/2016 14:55) Final results Test Result Flag Units (Reference) GLUCOSE 114 H mg/dL (70-110) BUN 18 mg/dL (7-18) CREATININE 0.9 mg/dL (0.6-1.3) Estimated GFR >60 mL/min Estimated GFR- >60 mL/min Note: Persistent reduction over 3 months in eGFR<60 mL/min/1.73 m2 defines CKD. Patients with eGFR values>=60 mL/min/1.73 m2 may also have CKD if evidence ofpersistent proteinuria. Additional information may be foundat www.kidney.org. SODIUM 139 mmol/L (136-145) POTASSIUM 3.2 # L mmol/L (3.5-5.1) CHLORIDE 100 mmol/L (98-107) CARBON DIOXIDE 25 mmol/L (21-32) CALCIUM 9.6 mg/dL (8.5-10.1) TOTAL PROTEIN 8.0 g/dL (6.4-8.2) ALBUMIN 4.2 g/dL (3.3-5.0) BILIRUBIN, TOTAL 0.3 mg/dL (0.0-1.0) ALKALINE PHOSPHATASE 61 U/L (46-116) AST (SGOT) 33 U/L (15-37) ALT (SGPT) 76 U/L (12-78) LIPASE 128 U/L (73-393) AMYLASE 38 U/L (25-115) CPK 186 U/L (24-260) TROPONIN I <0.05 L ng/mL (0.00-1.5) TROPONIN REFERENCE RANGE:<0.1 NEGATIVE0.1-1.5 INDETERMINANT>1.5 POSITIVE THYROID STIMULATING HORMONE 1.634 uIU/mL (0.34-3.74) . PROGRESS AND PROCEDURES Course of Care: Patient is stable. Patient/family counseled. Old medical records reviewed. Disposition: Discharged. Condition: stable. CLINICAL IMPRESSION Near syncope near syncope versus visual/neurological symptoms. INSTRUCTIONS (talk with your primary care doctor, neurologist and/or emergency medical tech about whether he would benefit from MRI imaging and a Holter monitor as discussed). Warnings: Further evaluation is necessary. GENERAL WARNINGS: Return or contact your physician immediately if your condition worsens or changes unexpectedly, if not improving as expected, or if other problems arise. Your Current Medications: CONTINUE TAKING THE FOLLOWING MEDICATIONS: Benadryl Oral : 25 mg at bedtime. Lisinopril-Hydrochlorothiazide Oral : Tablet 10-12.5 mg, 1 tablet daily. Lovastatin Oral : 40 mg daily. Vitamin D Oral : Capsule 2000 unit, 1 capsule daily. Follow-up: Follow up with your doctor tomorrow. Call for the next available appointment. Follow up with a emergency medical tech and neurologist- as recommended by your primary care physician. Understanding of the discharge instructions verbalized by patient. (Electronically signed by Abhijeet Mullen MD 04/07/2016 18:36)
--- NOTE | 2016-04-07 17:25 | ED ORDER SUMMARY ---
..... Patient: JAZZ DAVE OrderSheet [facility] VisitID: [id number] [address] [place] [address] 45y, F Registration Date/Time: 04/07/2016 ORDER SHEET Weight: 104.3 kg (stated) Allergies: Sulfa Antibiotics GENERAL ORDERS: CBC w Diff Urgent (13:53 04/07/2016 Waleska STAHL) (Ack 14:03 Chad) (14:13 ALawrence ER Tech1) CMP Urgent (13:53 04/07/2016 Waleska STAHL) (Ack 14:03 Chad) (14:13 ALawrence ER Tech1) UA-Culture if indicated Urgent (13:53 04/07/2016 Waleska STAHL) (Ack 14:03 Chad) (14:58 HKone R.N.) Amylase Urgent (13:53 04/07/2016 Waleska STAHL) (Ack 14:03 Chad) (14:13 ALawrence ER Tech1) Lipase Urgent (13:53 04/07/2016 Waleska STAHL) (Ack 14:03 Chad) (14:13 ALawrence ER Tech1) CPK Urgent (13:53 04/07/2016 Waleska STAHL) (Ack 14:03 Chad) (14:13 ALawrence ER Tech1) Troponin-I Urgent (13:53 04/07/2016 Waleska STAHL) (Ack 14:03 Chad) (14:13 ALawrence ER Tech1) PT with INR Urgent (13:53 04/07/2016 Waleska STAHL) (Ack 14:03 Chad) (14:13 ALawrence ER Tech1) PTT Urgent (13:53 04/07/2016 Waleska STAHL) (Ack 14:03 Chad) (14:13 ALawrence ER Tech1) BNP Urgent (13:53 04/07/2016 Waleska STAHL) (Ack 14:03 Chad) (14:13 ALawrence ER Tech1) Vitals - Orthostatic (13:53 04/07/2016 Waleska STAHL) (Ack 14:10 ASchmuck) (14:15 ASchmuck) TSH Urgent (14:09 04/07/2016 Jesus verbal order read back to Waleska STAHL) (14:13 ALawrence ER Tech1) EKG - ER Stat (16:17 04/07/2016 Waleska STAHL) (16:33 LTapper) MEDICATION ORDERS: IV FLUIDS: IV Saline Lock (13:53 04/07/2016 Waleska STAHL) (14:10 Jesus) ORDER SHEET NOTES: [Electronically signed by Abhijeet Mullen MD (18:36 04/07/2016)] [Electronically signed by Genaro Lovett R.N. (18:48 04/07/2016)] [Electronically locked/signed by Genaro Lovett R.N. (18:48 04/07/2016)]
--- NOTE | 2016-04-07 17:25 | ED NURSING NOTES ---
Clinical Report - Nurses [facility] [address] [place] [address] 04/07/2016 13:38 Patient: JAZZ DAVE TRIAGE Triage time 13:44 Apr 07 2016. Acuity: LEVEL 3. Chief Complaint: NEAR-SYNCOPE. 13:49 04/07/16. Alert. No acute distress. SEPSIS SCREEN: Sepsis Screen. Negative (no infection suspected/documented). PARVIN COMA SCORE: Parvin Coma Scale: 15- eyes open spontaneously (4); best verbal response- oriented x 4 (5); best motor response- obeys commands (6). --13:49 Zee Campa 13:49 04/07/16. BP: 157/75. HR: 97. RR: 18. O2 saturation: 97%. Temp: 98.9 F. Pain level now 0/10. --13:49 Zee Campa. Weight: 104.3 kg stated. Height/Length: 65 inches Per Patient. BMI: 38.3. --13:48 Zee Campa. Medications Benadryl Oral 25 mg, at bedtime. Lisinopril-Hydrochlorothiazide Oral (Tablet 10-12.5 mg) 1 tablet, daily. Lovastatin Oral 40 mg, daily. Vitamin D Oral (Capsule 2000 unit) 1 capsule, daily. --13:48 Zee Campa. Medication/allergy information source: the patient. --13:49 Zee Campa. Allergies Sulfa Antibiotics. Definite Moderate(hives) --13:48 Zee Campa. History Arrived by private vehicle. Historian: patient. Accompanied by spouse. Primary physician ([facility]). This started yesterday. ( Pt reports that she has been having episodes of feeling faint and as though she is going to pass out. Pt denies total LOC. Has occurred 7-8 times in past hour. Pt reports that this has been going on a for about the past 6 months, but yesterday got much worse. Was seen here yesterday, presents today for increased symptoms. Has appointment with cardiology tomorrow at [facility] at 1430.). She has had weakness. No ear pain, nausea, trouble walking, headache or vomiting. No fainting episodes or tinnitus. 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 PAST MEDICAL HX: Hypertension. No history of stroke or diabetes mellitus. No history of seizures or GI bleed. Immunizations: up-to-date. SOCIAL HX: Never smoker. No alcohol use or drug use. FALL RISK ASSESSMENT: Fall risk assessment completed. No fall risk identified. NUTRITIONAL RISK ASSESSMENT: The nutritional risk assessment revealed no deficiencies. FUNCTIONAL ASSESSMENT: Functional assessment: no impairments noted. LEARNING NEEDS ASSESSMENT: The learning needs assessment revealed no barriers. SKIN INTEGRITY ASSESSMENT: Skin integrity risk assessment completed. No skin integrity risk identified. --13:49 Zee Campa. PROBLEMS: Hypercholesterolemia. Hypertension. --13:49 Zee Campa. ADDITIONAL SURGERIES: Foot. Hysterectomy. --13:49 Zee Campa. Assessment The patient states feels the same. --13:49 Zee Campa. Interventions ID band on patient. --13:49 Zee Campa. PHYSICAL ASSESSMENT 13:50 04/07/16. Ambulatory to room. Patient gowned. GENERAL / NEURO / PSYCH: Oriented X 4. Appears in no acute distress. Alert. Speech within normal limits. HEENT: No facial asymmetry noted. Pupils equal, round and reactive to light. RESPIRATORY: Respirations not labored. CVS: Normal sinus rhythm noted. Capillary refill less than 2 seconds. GI / : Abdomen soft and nontender. SKIN: Skin is warm and dry. --13:50 Zee Campa. NURSING PROGRESS NOTES 13:50 04/07/16. The plan of care for this patient has been created. satellite project site monitor, pulse oximeter and NIBP monitor placed on patient; chief i dispatcher- Lead II and V5; monitor alarms on. Patient gowned. Head of bed elevated. Reassurance given. Two patient identifiers checked. Call light placed in reach. Side rails up x 1. Bed placed in lowest position. Brakes of bed on. Patient ready for evaluation- chart flagged and ED physician and ULTRASOUND SUPERVISOR notified. --13:50 Zee Campa 14:10 04/07/2016 Site #1 started via IV in the left forearm with an 22g angiocath, with aseptic technique and good blood return; two attempts. Blood drawn: rainbow set. Labeled in the presence of the patient and sent to the lab. Saline lock flushed with 10 mL saline. --14:10 Zee Campa 14:11 04/07/16. BP: 115/60. HR: 91. RR: 14. O2 saturation: 99% on room air. --14:12 Benton Sheets 14:12 04/07/16. BP: 116/82 taken while standing. HR: 96. RR: 15. O2 saturation: 99%. 14:10 04/07/16. BP: 122/79 taken while sitting. HR: 96. RR: 16. O2 saturation: 98%. 14:08 04/07/16. BP: 115/60 taken while lying. HR: 81. RR: 16. O2 saturation: 99%. --14:17 Zee Campa 15:11 04/07/16. BP: 114/64. HR: 85. O2 saturation: 98% on room air. --15:11 Zee Campa EKG time: (16:31). EKG was performed by a tech and shown to the ED physician. --16:33 Raul Hedrick 17:07 04/07/16. Care transferred and report given (Genaro Barber RN). --17:07 Zee Campa <<STRICKEN ENTRY-- 18:42 04/07/16. BP: 107/67. HR: 74. RR: 17. O2 saturation: 97%. Pain level now: 0/10. --18:43 Genaro Lovett RRhodaNRhoda --END STRIKE>> Correction --18:44 Genaro Lovett R.N. 17:00 04/07/16. BP: 107/67. HR: 74. RR: 17. O2 saturation: 97% on room air. Pain level now: 0/10. --18:46 Genaro Lovett R.N. 17:30 04/07/16. BP: 154/77. HR: 74. RR: 16. O2 saturation: 96% on room air. Pain level now: 0/10. --18:48 Genaro Lovett R.N. DISPOSITION / DISCHARGE 18:05 04/07/16. BP: 119/63. HR: 79. RR: 16. O2 saturation: 97% on room air. ED physician notified. Temp: 99.3 F (oral). Pain level now: 0/10. --18:40 Genaro Lovett R.N. Departure time: 1810. --18:40 Genaro Lovett R.N. 18:10. Condition at departure: improved. No learning barriers present. Discharge instructions provided and reviewed with the patient and spouse. Reviewed medication(s) (continue your usual prescribed medications). Reviewed referral to a neurologist and playground supervisor and family practice for followup. Patient and spouse verbalized understanding. Written instructions provided in French. The patient was discharged by the physician. She was discharged home and accompanied by spouse. She left the Emergency Department ambulatory and via private vehicle. Spouse driving. --18:42 Genaro Lovett R.N. Locked/Released at 04/07/2016 18:48 by Genaro Lovett R.N.
--- NOTE | 2016-04-07 18:49 | ED DISCHARGE INSTRUCTIONS ---
Patient: JAZZ DAVE General Instructions [facility] VisitID: [id number] [address] [place] [address] 45y, F Registration Date/Time: 04/07/2016 Near syncope near syncope versus visual/neurological symptoms. INSTRUCTIONS (talk with your primary care doctor, neurologist and/or access analyst about whether he would benefit from MRI imaging and a Holter monitor as discussed). Warnings: Further evaluation is necessary. GENERAL WARNINGS: Return or contact your physician immediately if your condition worsens or changes unexpectedly, if not improving as expected, or if other problems arise. Your Current Medications: CONTINUE TAKING THE FOLLOWING MEDICATIONS: Benadryl Oral : 25 mg at bedtime. Lisinopril-Hydrochlorothiazide Oral : Tablet 10-12.5 mg, 1 tablet daily. Lovastatin Oral : 40 mg daily. Vitamin D Oral : Capsule 2000 unit, 1 capsule daily. Follow-up: Follow up with your doctor tomorrow. Call for the next available appointment. Follow up with a access analyst and neurologist- as recommended by your primary care physician. Understanding of the discharge instructions verbalized by patient. ADDITIONAL INFORMATION Near-Fainting:Uncertain Cause Fainting (syncope) is a temporary loss of consciousness ("passing out"). It occurs when blood flow to the brain is reduced. Near-fainting ("near-syncope") is like fainting, but you do not fully "pass out." The common minor causes of near fainting include sudden fear, pain, emotional stress, overexertion, or quickly standing up after sitting or lying for a long time. The more serious causes for near fainting are due to either a very slow or very fast heart beat, dehydration, anemia, blood loss, problems related to the heart, or taking too much high blood pressure medicine. The exact cause of your episode is not certain. More tests may be required. Therefore, it is important that you follow up with your doctor as advised. Home Care: 1) Rest today. Resume your normal activities as soon as you are feeling back to normal. 2) If you become light-headed or dizzy, lie down right away or sit with your head between your knees. 3) Because we do not know the exact cause of your near fainting spell, another spell could occur without warning. Therefore, do not drive a car or use dangerous equipment. D o not take a bath alone (use a shower instead). Do not swim alone. You can resume these activities when your doctor says that you are no longer in danger of having a near fainting spell. 4) Stay well hydrated by drinking enough fluid each day. Follow Up with your doctor as instructed. Get Prompt Medical Attention if any of the following occur: -- Another fainting spell occurs, and it is not explained by the common causes listed above -- Chest, arm, neck, jaw, back or abdominal pain -- Shortness of breath -- Weakness, tingling or numbness in one side of the face, one arm or leg -- Slurred speech, confusion, trouble walking or seeing -- Seizure -- Blood in vomit, stools (black or red color) -- (In women) unexpected vaginal bleeding You have been given the following additional information: Near Syncope, Unknown (Electronically signed by Abhijeet Mullen MD 04/07/2016 18:36)
--- NOTE | 2016-04-07 18:49 | ED MED RECONCILIATION SUMMARY ---
Patient: JAZZ DAVE Medication Reconciliation Report [facility] VisitID: [id number] [address] [place] [address] 45y, F Registration Date/Time: 04/07/2016 Weight: 104.3 kg Height/Length: 65 in. BMI: 38.3 ALLERGIES: Sulfa Antibiotics The patient's Home Medications are listed below: CONTINUE TAKING THE FOLLOWING MEDICATIONS: Benadryl Oral 25 mg, at bedtime Lisinopril-Hydrochlorothiazide Oral (10-12.5 mg) 1 tablet, daily Lovastatin Oral 40 mg, daily Vitamin D Oral (2000 unit) 1 capsule, daily The source(s) of the original Home Medication information: patient The following Medications were given to the patient in the Emergency Department: None. The following Medications were prescribed to the patient: None.
--- NOTE | 2016-04-07 18:49 | ED DISCHARGE INSTRUCTIONS ---
Patient: JAZZ DAVE General Instructions [facility] VisitID: [id number] [address] [place] [address] 45y, F Registration Date/Time: 04/07/2016 Near syncope near syncope versus visual/neurological symptoms. INSTRUCTIONS (talk with your primary care doctor, neurologist and/or trash man about whether he would benefit from MRI imaging and a Holter monitor as discussed). Warnings: Further evaluation is necessary. GENERAL WARNINGS: Return or contact your physician immediately if your condition worsens or changes unexpectedly, if not improving as expected, or if other problems arise. Your Current Medications: CONTINUE TAKING THE FOLLOWING MEDICATIONS: Benadryl Oral : 25 mg at bedtime. Lisinopril-Hydrochlorothiazide Oral : Tablet 10-12.5 mg, 1 tablet daily. Lovastatin Oral : 40 mg daily. Vitamin D Oral : Capsule 2000 unit, 1 capsule daily. Follow-up: Follow up with your doctor tomorrow. Call for the next available appointment. Follow up with a trash man and neurologist- as recommended by your primary care physician. Understanding of the discharge instructions verbalized by patient. ADDITIONAL INFORMATION Near-Fainting:Uncertain Cause Fainting (syncope) is a temporary loss of consciousness ("passing out"). It occurs when blood flow to the brain is reduced. Near-fainting ("near-syncope") is like fainting, but you do not fully "pass out." The common minor causes of near fainting include sudden fear, pain, emotional stress, overexertion, or quickly standing up after sitting or lying for a long time. The more serious causes for near fainting are due to either a very slow or very fast heart beat, dehydration, anemia, blood loss, problems related to the heart, or taking too much high blood pressure medicine. The exact cause of your episode is not certain. More tests may be required. Therefore, it is important that you follow up with your doctor as advised. Home Care: 1) Rest today. Resume your normal activities as soon as you are feeling back to normal. 2) If you become light-headed or dizzy, lie down right away or sit with your head between your knees. 3) Because we do not know the exact cause of your near fainting spell, another spell could occur without warning. Therefore, do not drive a car or use dangerous equipment. D o not take a bath alone (use a shower instead). Do not swim alone. You can resume these activities when your doctor says that you are no longer in danger of having a near fainting spell. 4) Stay well hydrated by drinking enough fluid each day. Follow Up with your doctor as instructed. Get Prompt Medical Attention if any of the following occur: -- Another fainting spell occurs, and it is not explained by the common causes listed above -- Chest, arm, neck, jaw, back or abdominal pain -- Shortness of breath -- Weakness, tingling or numbness in one side of the face, one arm or leg -- Slurred speech, confusion, trouble walking or seeing -- Seizure -- Blood in vomit, stools (black or red color) -- (In women) unexpected vaginal bleeding You have been given the following additional information: Near Syncope, Unknown (Electronically signed by Abhijeet Mullen MD 04/07/2016 18:36)
--- NOTE | 2016-04-07 18:49 | ED MED RECONCILIATION SUMMARY ---
Patient: JAZZ DAVE Medication Reconciliation Report [facility] VisitID: [id number] [address] [place] [address] 45y, F Registration Date/Time: 04/07/2016 Weight: 104.3 kg Height/Length: 65 in. BMI: 38.3 ALLERGIES: Sulfa Antibiotics The patient's Home Medications are listed below: CONTINUE TAKING THE FOLLOWING MEDICATIONS: Benadryl Oral 25 mg, at bedtime Lisinopril-Hydrochlorothiazide Oral (10-12.5 mg) 1 tablet, daily Lovastatin Oral 40 mg, daily Vitamin D Oral (2000 unit) 1 capsule, daily The source(s) of the original Home Medication information: patient The following Medications were given to the patient in the Emergency Department: None. The following Medications were prescribed to the patient: None.
--- NOTE | 2016-04-07 18:49 | ED MAR SUMMARY ---
..... Medication Administration Record [facility] [address], [place] [id number] Patient: JAZZ DAVE Visit ID: [id number] 45y, F Weight: 104.3 kg Height/Length: 65 in BMI: 38.3 ALLERGIES: Sulfa Antibiotics
--- NOTE | 2016-04-07 18:49 | ED MAR SUMMARY ---
..... Medication Administration Record [facility] [address] [place], [place] [id number] Patient: JAZZ DAVE Visit ID: [id number] 45y, F Weight: 104.3 kg Height/Length: 65 in BMI: 38.3 ALLERGIES: Sulfa Antibiotics
== END 2016-04-07 18:10 | disposition home or self-care (01) ==
LOC: ED SRH 13:34
DX: R55 Syncope and collapse (principal); I10 Essential (primary) hypertension; Z88.2 Allergy status to sulfonamides; Z79.899 Other long term (current) drug therapy
CPT/HCPCS: 90004; 90100; 90616; 91320; 92235; 92530; 92610; 93140; 94001; 94060; 95059